=== PATIENT | female | born 1945 | race Caucasian/White ===

== ENCOUNTER → 2016-04-04 | Outpatient (CLI) | payer OTHER ==
[~2016-04-04] MED LIST: ACET-1138 PO; ASPEC325 PO; ASPEC81 PO; ASPI81TA28 PO; BIOT1CAP3 PO; CALC600T9 PO; CLB200 PO; GARL10007 PO; HYDR25TA5 PO; LISI40TA PO; METO1TAB69 PO; MORP15TA19 PO; MULT-506 PO; OMEG10007 PO; ONDA8TAB6 PO; OXYSR10 PO; POTASSIUM PO; RXC5 PO; SNK PO; VITA1CAP7 PO; ZINC PO
--- NOTE | 2016-04-04 12:51 | PAT Medication Instructions ---
Service Date Apr 04, 2016. Current Home Medication List Aspirin (Aspirin Ec), 81 MG PO 2XWEEK Biotin (Biotin), 5,000 MCG PO NOON Calcium Carbonate-Vitamin D (Calcium + D), 1 TAB PO NOON Fish Oil (Black Earth-3), 1,000 MG PO BID Garlic (Garlic), 1,000 MG PO NOON Hydrochlorothiazide (Hydrochlorothiazide), 25 MG PO QAM Lisinopril (Zestril), 40 MG PO QAM Multivitamin (Multivitamin), 1 TAB PO NOON Vitamin E (E200), 200 UNITS PO 3XWEEK [Potassium], 99 MG PO 2XWEEK [Zinc], 500 MG PO 2XWEEK Medication Instructions For Your Scheduled Surgery Aspirin (Aspirin Ec), 81 MG PO 2XWEEK (continue as usual) - Hold the following medications 2 weeks prior to surgery: Zinc, 500 MG PO 2XWEEK Vitamin E (E200), 200 UNITS PO 3XWEEK Garlic (Garlic), 1,000 MG PO NOON Fish Oil (Black Earth-3), 1,000 MG PO BID Biotin (Biotin), 5,000 MCG PO NOON - Hold the following medications the morning of surgery: Potassium 99 MG PO 2XWEEK Multivitamin (Multivitamin), 1 TAB PO NOON Hydrochlorothiazide (Hydrochlorothiazide), 25 MG PO QAM Lisinopril (Zestril), 40 MG PO QAM Calcium Carbonate-Vitamin D (Calcium + D), 1 TAB PO NOON If you have any questions please call us at [phone] or [phone] ( Kendra) or [phone]
[2016-04-04 13:48] LABS: ALT/SGPT 33 U/L (12-78); BLOOD UREA NITROGEN 14 mg/dl (7-18); BUN/CREATININE RATIO 18.1 (10-20); CALCIUM 9.1 mg/dl (8.5-10.1); CARBON DIOXIDE 25 mmol/L (21-32); CHLORIDE 102 mmol/L (98-107); CHOLESTEROL 202 mg/dl (0-200); CREATININE 0.75 mg/dl (0.60-1.20); GLUCOSE 110 mg/dl (70-99); POTASSIUM 3.8 mmol/L (3.5-5.1); SODIUM 137 mmol/L (136-145); TRIGLYCERIDES 142 mg/dl (0-150); VERY LOW DENSITY LIPOPROT CALC 28 mg/dl
[2016-04-04 13:50] LABS: ALB/GLOB RATIO 1.3 (0.9-2); ALKALINE PHOSPHATASE 59 U/L (45-117); AST/SGOT 26 U/L (15-37); CHOLESTEROL/HDL RATIO 3.7; HDL CHOLESTEROL 54 mg/dl; LDL CHOLESTEROL CALCULATED 120 mg/dl
[2016-04-04 13:53] LABS: ESTIMATED AVERAGE GLUCOSE 108 mg/dl; HA1C FLAG Normal (Normal)
== END | disposition home or self-care (01) ==
LOC: C.LAB 12:05
PROVIDERS: ATTEND Family Medicine
DX: I10 Essential (primary) hypertension (principal); E78.5 Hyperlipidemia, unspecified; R73.01 Impaired fasting glucose

== ENCOUNTER 2016-04-18 10:52 | Inpatient (IN) | payer OTHER ==
[2016-04-04 12:13] VITALS: BMI 37.0
[2016-04-04 13:20] LABS: BASO % 0.3 %; BASO ABS # 0.03 K/uL (0-0.2); COMPLETE YES; EOS % 1.2 %; HEMATOCRIT 37.2 % (37-47); IG% 0.6 %; LYMPH % 20.9 %; LYMPH ABS # 2.08 K/uL (1.2-3.4); MEAN CELL VOLUME 83.8 fL (80-100); MEAN CORPUSCULAR HEMOGLOBIN 30.6 pg (25-34); MEAN CORPUSCULAR HGB CONC 36.6 g/dl (32-36); MONO % 5.9 %; NEUT % 71.1 %; PLATELET COUNT 254 K/uL (130-400); RED BLOOD COUNT 4.44 M/uL (4.2-5.4); WHITE BLOOD COUNT 9.94 K/uL (4.8-10.8)
[2016-04-04 13:22] LABS: URINE APPEARANCE CLOUDY (CLEAR); URINE BILIRUBIN NEG (NEG); URINE COLOR DK YELLOW; URINE EPITHELIAL CELL AUTO >30 /lpf (0-5); URINE NITRITE NEG (NEG); URINE PH 5.5 (4.5-7.5); URINE SPECIFIC GRAVITY 1.026 (1.000-1.030); UROBILINOGEN NEG (NEG); ZZUR CULT IF INDIC CLEAN CATCH YES
[2016-04-04 13:31] LABS: MANUAL MICROSCOPIC REQUIRED? NO; REVIEW REQ? NO
[2016-04-04 13:33] LABS: PARTIAL THROMBOPLASTIN RATIO 0.9; PROTHROMBIN TIME (PATIENT) 10.7 SECONDS (9.0-12.0)
--- NOTE | 2016-04-04 13:57 | DIAGNOSTIC IMAGING REPORT ---
TWO VIEW CHEST CLINICAL HISTORY: Preoperative examination. FINDINGS: PA and lateral chest radiographs are compared to study dated 12/30/2013. The heart is mildly enlarged and there is atherosclerotic calcification of the thoracic or. The pulmonary vasculature is noncongested. Chronic interstitial thickening is unchanged. The lungs and pleural spaces are clear. There is no pneumothorax. The skeletal structures are osteopenic. Degenerative change is noted throughout the thoracic spine. Productive degenerative change is noted at the right acromioclavicular joint. IMPRESSION: Mild cardiac enlargement with no active disease in the chest. Electronically signed by: Albert Bhatia M.D. 04/04/2016 1:55 PM Dictated Date/Time: 04/04/2016 1:49 PM
--- NOTE | 2016-04-17 14:59 | HISTORY & PHYSICAL EXAMINATION ---
DATE OF ADMISSION: 04/18/2016 CHIEF COMPLAINT: Left knee pain. HISTORY OF PRESENT ILLNESS: Holly is a 71-year-old female with a 6-month history of left knee pain. She rates her pain at 6/10. She has pain with her daily activities. She has limited standing and walking tolerance. Pain is worse with weightbearing. The patient has had injections and anti-inflammatories in the past as well as physical therapy without relief. She has failed conservative treatment and is scheduled for a left knee replacement. PAST MEDICAL HISTORY: Hypertension and a history of MRSA osteoarthritis. She denies heart disease, diabetes or DVT. PAST SURGICAL HISTORY: Right total hip arthroplasty. SOCIAL HISTORY: The patient denies alcohol or tobacco use. She lives in a single chad home. She is and retired. FAMILY HISTORY: Negative for DVT. MEDICATIONS: Lisinopril 40 mg daily, hydrochlorothiazide 25 mg daily, aspirin 81 mg twice a week, multivitamin 1 daily, calcium plus D3 once daily, garlic 1000 mg daily, zinc 50 mg twice a week, potassium twice a week, vitamin E 200 mg 3 times a week, fish oil 1000 mg daily, and biotin 5000 mg daily. ALLERGIES: None. REVIEW OF SYSTEMS: See HPI. Ten other systems reviewed, all negative. PHYSICAL EXAMINATION: VITAL SIGNS: Height 5 feet 5 inches, weight 225 pounds, and BMI is 37. GENERAL: This is a well-developed and well-nourished female, who is alert and oriented x3. Mood and affect are appropriate. HEENT: Normocephalic and atraumatic. Mucous membranes are moist and intact. NECK: Supple without lymphadenopathy. HEART: Regular rate and rhythm without murmurs, rubs or gallops. LUNGS: Clear to auscultation without wheezes or rhonchi. ABDOMEN: Soft and nontender. Bowel sounds are equal and active. EXTREMITIES: No ecchymosis, redness or warmth. Thigh and calf are soft and nontender. She has varus deformity. She has moderate flexion contracture of 10 degrees. She can flex to 100 degrees with no laxity. She is neurovascularly intact with +5/5 strength. X-RAY EXAMINATION: AP and lateral views show joint space narrowing and large osteophyte formation. IMPRESSION: Degenerative joint disease, left knee. PLAN: The patient will be admitted for a left total knee arthroplasty. We will plan on aspirin for DVT prophylaxis. The patient will be doing likely outpatient physical therapy.
[2016-04-18] VITALS (7 sets, daily range): BP systolic 111–146; BP diastolic 62–78; PULSE 88–101; TEMP 36.5–36.9; O2SAT 93–97; Ht 165.1 cm; Wt 101.9 kg
[~2016-04-18] VITALS: Ht 165.1 cm; Wt 101.9 kg
[~2016-04-18 10:52] MED LIST changes: -ACET-1138 PO; +ACETAMINOPHEN 500 MG TAB PO SCH; -ASPEC325 PO; -ASPEC81 PO; +BUPIVACAINE 0.25% 30 ML VIAL ONE; +BUPIVACAINE 0.5 % 5 MG/1 ML PF 10ML VIAL ONE; +CEFAZOLIN 2000 MG/60 ML D5W 60 ML IV SCH; -CLB200 PO; +CeleBREX 200 MG CAP PO SCH; +DEXAMETHASONE 4 MG TAB PO SCH; +FAMOTIDINE 20 MG TAB PO SCH; +LACTATED RINGER'S 1000ML 1,000 ML IV SCH; +LACTATED RINGER'S 1000ML 500 ML IV ONE; +LACTATED RINGER'S 1000ML IV SCH; -METO1TAB69 PO; +METOCLOPRAMIDE HCL 10 MG TAB PO SCH; -MORP15TA19 PO; -ONDA8TAB6 PO; +OXYCODONE HCL 10 MG TABCR (OXYCONTIN) PO SCH; -OXYSR10 PO; +POLYMYXIN B SULFATE 100,000 UNITS in NSS 100ML IR SCH; +ROPIVACAINE 5MG/ML 30 ML 150 MG, BUPIVACAINE/EPINEPHR 0.5% MPF 30 ML, KETOROLAC TROMETH... INFIL SCH; -RXC5 PO; -SNK PO; +VANCOMYCIN 1GM/270ML NSS 270 ML IV SCH; +VANCOMYCIN INJ 1,500 MG in SODIUM CHLORIDE 0.9% 500ML 500 ML IV SCH; +VANCOMYCIN INJ 400 MG in NSS 100ML IR SCH
[2016-04-18] MEDS ORDERED: PROPOFOL IV EMULSION 10 MG/ML 20 ML VIAL IV ONE ×2 (11:32→14:59)
[2016-04-18] MEDS ORDERED: MIDAZOLAM HCL 1 MG/ML 2ML VIAL ONE ×2 (11:32→13:50)
[2016-04-18] MEDS ORDERED: FENTANYL CITRATE INJ 50 MCG/1 ML 2 ML VIAL ONE (11:32)
[2016-04-18] MEDS ORDERED: ONDANSETRON INJ 2 MG/ML 2 ML VIAL ONE (11:32)
[2016-04-18] MEDS ORDERED: LIDOCAINE HCL 2% 2 ML VIAL (20MG/ML) ONE (11:32)
--- NOTE | 2016-04-18 12:21 | History & Physical Bridge Note ---
H&P Re-Evaluation Bridge Note: I have examined the patient, reviewed the History & Physical and in the interval since the performance of the History & Physical I have noted the following changes of clinical significance: No changes noted
[2016-04-18] MEDS ORDERED: ORTHO JOINT ANESTHETIC ONE (13:00)
[2016-04-18] MEDS ORDERED: BUPIVACAINE/EPINEPHRINE 0.25% 1:200,000 30 ML VIAL ONE (13:00)
[2016-04-18] MEDS ORDERED: POVIDONE-IODINE OP SOLN 30 ML BTL ONE (13:01)
[2016-04-18] MEDS ORDERED: BACITRACIN 50000 UNIT VIAL ONE (13:01)
[2016-04-18] MEDS: TRANEXAMIC ACID INJ 1,000 MG in SODIUM CHLORIDE 0.9% 100ML 100 ML IV SCH ×2 (13:01→20:34)
[2016-04-18] MEDS ORDERED: LACTATED RINGER'S 1000ML 1,000 ML IV PRN (13:04)
[2016-04-18] MEDS ORDERED: ONDANSETRON INJ 2 MG/ML 2 ML VIAL IV PRN ×2 (13:15→15:00)
[2016-04-18] MEDS ORDERED: FENTANYL CITRATE INJ 50 MCG/1 ML 2 ML VIAL IV PRN (13:15)
[2016-04-18] MEDS ORDERED: GLYCOPYRROLATE INJ 0.2 MG/ML VIAL ONE (13:49)
--- NOTE | 2016-04-18 14:56 | [facility] Post Operative Brief Note ---
Immediate Operative Summary Operative Date Apr 18, 2016. Pre-Operative Diagnosis Degenerative joint disease, left knee Post-Operative Diagnosis Same as preop Procedure(s) Performed Left total knee arthroplasty Surgeon Dr. Veliz [employer] Associate Surgeon(s) Kim Means PA-C Estimated Blood Loss 5 cc Findings severe disease Specimens A: left knee bone and tissue Complication(s) None Disposition Recovery Room / PACU
[2016-04-18] MEDS ORDERED: SOD PHOSPHATE/SOD BIPHOSPHATE ENEMA 132 ML BTL PR PRN (15:00)
[2016-04-18] MEDS ORDERED: BISACODYL 10 MG SUPP PR PRN (15:00)
[2016-04-18] MEDS ORDERED: DiphenhydrAMINE HCL 50 MG/ML VIAL IV PRN (15:00)
[2016-04-18] MEDS ORDERED: ZOLPIDEM TARTRATE 5 MG TAB PO PRN (15:00)
[2016-04-18] MEDS ORDERED: MoRPHine SULFATE 2 MG/ML CARP IV PRN (15:00)
[2016-04-18] MEDS ORDERED: OXYCODONE HCL IR 5 MG TAB (IMMEDIATE RELEASE) PO PRN (15:00)
[2016-04-18] MEDS ORDERED: KETOROLAC TROMETHAMINE 15 MG/ML VIAL IV. PRN (15:00)
[2016-04-18] MEDS ORDERED: MAGNESIUM HYDROXIDE SUSP 30 ML UDC PO PRN (15:00)
[2016-04-18] MEDS ORDERED: ALUMINUM/MAGNESIUM/SIMETH (MAALOX MAX) 30 ML UDC PO PRN (15:00)
[2016-04-18] MEDS ORDERED: METOCLOPRAMIDE HCL INJ 5 MG/ML 2 ML VIAL IV PRN (15:00)
--- NOTE | 2016-04-18 16:03 | DIAGNOSTIC IMAGING REPORT ---
PORTABLE LEFT KNEE 2 VIEWS CLINICAL HISTORY: Postop knee arthroplasty COMPARISON: None. DISCUSSION: There are postsurgical changes of a total left knee arthroplasty and patellar resurfacing. The femoral and tibial components appear well seated. Overlying skin amanda are evident. There is aortic and the soft tissues consistent with history of recent surgery. IMPRESSION: Postsurgical changes of a total left knee arthroplasty. Electronically signed by: Deshaun Rhodes M.D. 04/18/2016 4:01 PM Dictated Date/Time: 04/18/2016 4:01 PM
--- NOTE | 2016-04-18 16:45 | OPERATIVE REPORT ---
DATE OF OPERATION: 04/18/2016 PREOPERATIVE DIAGNOSIS: Severe degenerative arthritis, left knee. POSTOPERATIVE DIAGNOSIS: Same. PROCEDURE: Left total knee with patient matched implant. SURGEON: Dr. Chris Veliz. BASIC SCIENCES PROFESSOR: JULISSA Hodge. ANESTHESIA: Spinal. TOURNIQUET TIME: 70 minutes at 350 mmHg. DRAINS: Hemovac x2. CULTURES: None. COMPLICATIONS: None. COMPONENTS USED: [employer] Journey Knee System: Femur size 5, tibia size 4 x 10, and patella size 32. NOTE: JULISSA Hodge was present and assisted throughout due to the complicated nature of this case. He helped with preparation and set up, first assisted throughout and personally closed the capsule, subcutaneous and skin layers and applied the postoperative dressing. DESCRIPTION OF PROCEDURE: Following satisfactory spinal, the patient was supine. A tourniquet was placed. The lower extremity was prepared with ChloraPrep and draped sterilely. The tourniquet was inflated because of the severity of the disease. Following a surgical time out, a midline incision was made with a median parapatellar arthrotomy. The patient had severe disease with what appeared to be severe bone loss of the patella and a preoperative range motion of 10-100 degrees only. The knee showed severe wear of the patella and severe patellofemoral and medial disease. The anterior cruciate ligament was absent. The posterior cruciate ligament was excised. The patient matched femoral block was applied. Femoral distal rotation and resection were set and completed. The 4-in-1 block was used to finish preparation of the femur. The patient matched tibial block was applied. Tibial resection was completed. The patella was freehand cut very carefully and sized to about 12 mm thick. A precut patella measured only about 13 mm thick and was quite sclerotic and deformed. However, we were able to obtain a solid base to the patella. A trial reduction was performed. The knee showed good patellar tracking and good stability with much improved range of motion. The trial components were removed. The capsule was prepared with the orthopedic cocktail and after irrigation, the components were cemented using Simplex G cement. A Betadine soak was performed. When the cement had hardened, the Betadine was irrigated. Two drains were placed. The arthrotomy was closed with 0 V-Loc and reinforced with 1 Vicryl interrupted. The subcutaneous tissues were closed with 2-0 Vicryl. The skin was closed with a running subcuticular stitch of 3-0 V-Loc. Dermabond and then a surface wound VAC were applied. The tourniquet was deflated. The patient was returned to her bed in stable condition. I attest to the content of the Intraoperative Record and any orders documented therein. Any exceptio ns are noted below.
--- NOTE | 2016-04-18 17:32 | Anesthesiology Progress Note ---
Anesthesia Post Op Note Date & Time Apr 18, 2016 at 17:33 Vital Signs Pain Intensity: 0 Vital Signs Past 12 Hours Date Time Temp Pulse Resp B/P Pulse Ox O2 Delivery O2 Flow Rate FiO2 04/18/16 17:25 36.6 92 20 120/69 96 Nasal Cannula 2 04/18/16 17:15 94 16 133/75 94 Nasal Cannula 2 04/18/16 17:05 93 18 120/63 94 Nasal Cannula 2 04/18/16 16:55 93 20 113/63 95 Nasal Cannula 2 04/18/16 16:45 92 16 122/69 95 Nasal Cannula 2 04/18/16 16:35 91 13 122/66 94 Nasal Cannula 2 04/18/16 16:25 92 18 106/71 94 Nasal Cannula 2 04/18/16 16:15 93 17 121/68 94 Nasal Cannula 2 04/18/16 16:05 96 17 122/68 94 Nasal Cannula 2 04/18/16 15:55 94 19 125/64 94 Nasal Cannula 2 04/18/16 15:45 97 20 117/60 94 Nasal Cannula 2 04/18/16 15:37 36.4 100 16 118/58 94 Nasal Cannula 2 04/18/16 11:28 36.9 88 18 133/76 96 Room Air Notes Mental Status: alert / awake / arousable, participated in evaluation Pt Amnestic to Procedure: Yes Nausea / Vomiting: adequately controlled Pain: adequately controlled Airway Patency, RR, SpO2: stable & adequate BP & HR: stable & adequate Hydration State: stable & adequate Anesthetic Complications: no major complications apparent
[2016-04-18] MEDS: D5W AND 1/2NSS + 20MEQ KCL 1,000 ML IV SCH (20:49)
[2016-04-18] MEDS: CEFAZOLIN IV 2,000 MG in DEXTROSE 5% 50ML 50 ML IV SCH (20:58)
[2016-04-18] MEDS: ASPIRIN 81 MG ECTAB PO SCH (20:59)
[2016-04-18] MEDS: OXYCODONE HCL 10 MG TABCR (OXYCONTIN) PO SCH (21:01)
[2016-04-18] MEDS: SENNA 8.6 MG TAB PO SCH (21:02)
[2016-04-18] MEDS ORDERED: TRANEXAMIC ACID INJ 1,000 MG in SODIUM CHLORIDE 0.9% 100ML 100 ML IV ONE (22:00)
[2016-04-18] MEDS: ACETAMINOPHEN 500 MG TAB PO SCH (22:16)
[2016-04-19] VITALS (7 sets, daily range): BP systolic 122–149; BP diastolic 65–106; PULSE 81–90; TEMP 36.4–36.5; O2SAT 94–96
[2016-04-19] MEDS: CEFAZOLIN IV 2,000 MG in DEXTROSE 5% 50ML 50 ML IV SCH (03:29)
[2016-04-19] MEDS: ACETAMINOPHEN 500 MG TAB PO SCH ×3 (05:34→21:40)
[2016-04-19] MEDS: D5W AND 1/2NSS + 20MEQ KCL 1,000 ML IV SCH ×2 (05:34→13:47)
[2016-04-19 07:45] LABS: HEMATOCRIT 31.1 % (37-47); MEAN CELL VOLUME 83.6 fL (80-100); MEAN CORPUSCULAR HEMOGLOBIN 30.1 pg (25-34); MEAN PLATELET VOLUME 8.2 fL (7.4-10.4); PLATELET COUNT 214 K/uL (130-400); RED BLOOD COUNT 3.72 M/uL (4.2-5.4)
[2016-04-19 08:11] LABS: BUN/CREATININE RATIO 18.3 (10-20); CALCIUM 8.4 mg/dl (8.5-10.1); CREATININE 0.83 mg/dl (0.60-1.20); POTASSIUM 3.9 mmol/L (3.5-5.1)
--- NOTE | 2016-04-19 08:15 | Orthopedic Progress Note ---
Orthopedic Progress Note Date of Service Apr 19, 2016. Subjective Post OP Day: 1 Reports: feeling well, Denies: SOB, calf pain, chest pain, light headedness, nausea / vomiting Objective calves soft nontender, N/V intact, dressing C/D/I, A&O x3, toes mobile, hemovac drainage (250/150CC PER SHIFT) Date Time Temp Pulse Resp B/P Pulse Ox O2 Delivery O2 Flow Rate FiO2 04/19/16 08:00 36.5 83 18 126/78 94 Room Air 04/19/16 03:57 36.4 84 16 122/71 94 Room Air 04/19/16 00:25 Room Air 04/18/16 23:57 36.6 94 16 124/70 95 Room Air 04/18/16 21:55 36.7 100 16 130/68 95 Room Air 04/18/16 20:15 36.5 101 17 134/70 96 Nasal Cannula 2.0 04/18/16 19:13 36.7 90 16 146/78 94 Nasal Cannula 2.0 04/18/16 18:50 36.6 88 16 127/73 93 Nasal Cannula 2.0 04/18/16 18:15 97 Nasal Cannula 2.0 04/18/16 18:15 Nasal Cannula 2.0 04/18/16 18:15 36.8 92 16 111/62 97 Nasal Cannula 2.0 04/18/16 17:45 93 20 119/67 96 Nasal Cannula 2 04/18/16 17:35 94 22 123/65 95 Nasal Cannula 2 04/18/16 17:25 36.6 92 20 120/69 96 Nasal Cannula 2 04/18/16 17:15 94 16 133/75 94 Nasal Cannula 2 04/18/16 17:05 93 18 120/63 94 Nasal Cannula 2 04/18/16 16:55 93 20 113/63 95 Nasal Cannula 2 04/18/16 16:45 92 16 122/69 95 Nasal Cannula 2 04/18/16 16:35 91 13 122/66 94 Nasal Cannula 2 04/18/16 16:25 92 18 106/71 94 Nasal Cannula 2 04/18/16 16:15 93 17 121/68 94 Nasal Cannula 2 04/18/16 16:05 96 17 122/68 94 Nasal Cannula 2 04/18/16 15:55 94 19 125/64 94 Nasal Cannula 2 04/18/16 15:45 97 20 117/60 94 Nasal Cannula 2 04/18/16 15:37 36.4 100 16 118/58 94 Nasal Cannula 2 04/18/16 11:28 36.9 88 18 133/76 96 Room Air Laboratory Results 24 Hours: Test 04/19/16 07:25 Hematocrit 31.1 % Hemoglobin 11.2 g/dL Assessment & Plan Assessment: POD#1 SP LEFT TKA Inhouse Planning Pain Management: Celebrex, Oxycontin, PO Tylenol, Oxy IR DVT Prophylaxis: TEDs, SCDs, ASA Discharge Planning Discharge Planning: home with home health ([facility] DC SUNDAY DUE TO DRAIN OUTPUT.)
[2016-04-19] MEDS: OXYCODONE HCL 10 MG TABCR (OXYCONTIN) PO SCH ×2 (08:57→21:00)
[2016-04-19] MEDS: MULTIVITAMIN TAB PO SCH (08:58)
[2016-04-19] MEDS: PANTOprazole SOD 40 MG TAB PO SCH (08:58)
[2016-04-19] MEDS: HYDROCHLOROTHIAZIDE 25 MG TAB PO SCH (08:59)
[2016-04-19] MEDS: ASPIRIN 81 MG ECTAB PO SCH ×2 (08:59→21:40)
[2016-04-19] MEDS: LISINOPRIL 40 MG TAB PO SCH (08:59)
--- NOTE | 2016-04-19 14:15 | Anesthesiology Progress Note ---
Anesthesia Post Op Note Date & Time Apr 19, 2016 at 14:15 Vital Signs Pain Intensity: 7.0 Vital Signs Past 12 Hours Date Time Temp Pulse Resp B/P Pulse Ox O2 Delivery O2 Flow Rate FiO2 04/19/16 11:43 124/68 04/19/16 11:12 36.5 90 18 148/106 96 Room Air 04/19/16 08:38 94 Room Air 04/19/16 08:00 36.5 83 18 126/78 94 Room Air 04/19/16 07:54 Room Air 04/19/16 03:57 36.4 84 16 122/71 94 Room Air Notes Mental Status: alert / awake / arousable, participated in evaluation Pt Amnestic to Procedure: Yes Nausea / Vomiting: adequately controlled Pain: adequately controlled Airway Patency, RR, SpO2: stable & adequate BP & HR: stable & adequate Hydration State: stable & adequate Neuraxial Anesthesia: was administered, sensory block resolved Anesthetic Complications: no major complications apparent
[2016-04-19] MEDS: TRAMADOL HCL 50 MG TAB PO PRN (16:23)
[2016-04-19] MEDS: SENNA 8.6 MG TAB PO SCH (21:40)
[2016-04-20] MEDS: ACETAMINOPHEN 500 MG TAB PO SCH (05:32)
[2016-04-20 07:25] VITALS: BP 160/81; PULSE 80; TEMP 36.6; O2SAT 95
[2016-04-20] MEDS: TRAMADOL HCL 50 MG TAB PO PRN (07:41)
--- NOTE | 2016-04-20 07:59 | Orthopedic Progress Note ---
Orthopedic Progress Note Date of Service Apr 20, 2016. Subjective Post OP Day: 2 Reports: feeling well, pain controlled w PO medications, Denies: complaints Objective calves soft nontender, dressing C/D/I, A&O x3, toes mobile Date Time Temp Pulse Resp B/P Pulse Ox O2 Delivery O2 Flow Rate FiO2 04/20/16 07:40 Room Air 04/19/16 23:12 36.4 81 16 149/73 95 Room Air 04/19/16 22:30 Room Air 04/19/16 16:28 Room Air 04/19/16 16:04 36.4 84 18 129/65 94 Room Air 04/19/16 11:43 124/68 04/19/16 11:12 36.5 90 18 148/106 96 Room Air 04/19/16 08:38 94 Room Air 04/19/16 08:00 36.5 83 18 126/78 94 Room Air Assessment & Plan Assessment: POD# 2 SP LEFT TKA Inhouse Planning Pain Management: Celebrex, Oxycontin, PO Tylenol, Oxy IR DVT Prophylaxis: TEDs, SCDs, ASA Discharge Planning Discharge Planning: home with home health (DC TODAY DRAIN OUT )
[2016-04-20] MEDS ORDERED: ASPEC81 PO (08:26)
[2016-04-20] MEDS ORDERED: RXC5 PO (08:26)
[2016-04-20] MEDS ORDERED: OXYSR10 PO (08:26)
[2016-04-20] MEDS ORDERED: ACET-1138 PO (08:26)
[2016-04-20] MEDS ORDERED: SNK PO (08:26)
[2016-04-20] MEDS ORDERED: ONDA8TAB6 PO (08:26)
[2016-04-20] MEDS ORDERED: CLB200 PO (08:26)
--- NOTE | 2016-04-20 08:37 | Discharge Instructions ---
Discharge Instructions Admission Reason for Admission: Left Knee Degenerative Arthritis Discharge Discharge Diagnosis / Problem: Left Knee Djd Discharge Goals Goal(s): Decrease discomfort, Improve function Activity Recommendations Activity Limitations: per Instructions/Follow-up section Weightbearing Status: Left weightbearing (as tolerated) . Instructions / Follow-Up Instructions / Follow-Up ACTIVITY RECOMMENDATIONS: SELF CARE INSTRUCTIONS AFTER TOTAL KNEE REPLACEMENT A. You may need to continue a physical therapy program after discharge from the hospital. There are several options available to you. Your doctor will assist you in selecting the best one for you. 1. An out-patient facility 2 to 3 times a week for therapy or home therapy. 2. Continue working on all exercises taught to you in the hospital. Your goals should be to increase bending of your knee to 90 degrees and beyond and to fully straighten your knee. B. You may progress at your own pace from walking with a walker or crutches to a cane; then to no assistive devices. C. Make walking a part of your daily routine. Be up as much as comfortable with rest periods throughout the day. Rest with leg elevation is very important. Use the ice wrap frequently for the first 3-4 weeks. D. There are no restrictions on activities. You may ride in a car, shop, participate in traffic ii manager and all social activities. E. Wear the long elastic stockings (HUSSEIN hose) 20 hours a day for 2 weeks after surgery. They can be removed several times a day for laundering and for a bath. F. You may shower, no tub baths until cleared by your doctor. SPECIAL CARE INSTRUCTIONS: VERY IMPORTANT TO READ AND REVIEW A. There are a few signs you need to watch for after you are home. Call [facility] if you notice any of the followin. Increased severe knee pain. Some pain is expected especially when you exercise. 2. Increased swelling in your leg or knee; pain or swelling of the calf muscle in either lower leg. 3. Any fluid drainage from the incision. 4. Shortness of breath or chest pain. B. Please call [facility] at if you have any concerns or questions about your operation or recovery. The doctor or his nurse will return your call promptly. C. You must take antibiotics before dental work, bladder, bowel or other surgery. Your doctor will provide you with a permanent care to carry describing this precaution. IMPORTANT: * REMEMBER TO TAKE ASPIRIN, 81 MG, TWICE DAILY FOR 4 WEEKS UNLESS OTHERWISE DIRECTED. THIS IS YOUR BLOOD THINNER. * HIGH RISK PATIENTS MAY BE PRESCRIBED A STRONGER BLOOD THINNER. THIS WILL BE PROVIDED AT DISCHARGE. * CALL IF INCREASED PAIN, REDNESS, DRAINAGE OR FEVER GREATER THAT 101. * WEAR HUSSEIN HOSE 20 HOURS PER DAY FOR 2 WEEKS. * Prevena- This is a large suction dressing covering your incision. This will help pull any excess drainage from the wound and allow your incision to heal properly. You may shower with this if you can keep the unit outside of the shower. If any bleeding or leakage is noted please call your doctor's office. This will remain on your incision for 7 days and then should be removed. This can be done yourself or by the home nursing staff if applicable. The entire unit is disposable once removed. Once removed, keep incision clean and dry. After you have removed the Prevena dressing, follow the instructions below for the Dermabond dressing. If redness or drainage is noted, please call your surgeon. *DERMABOND Prineo- This is a mesh tape dressing that is covered with glue. It should remain in place until the incision is properly healed, usually 10-14 days. This dressing is designed to naturally slough off. You may trim the excess mesh tape as it peels off. Incision may be briefly wet in a shower. Dry immediately by blotting with a clean, dry towel. Do not bath or swim until instructed by your doctor. Do not scratch, rub, or pick at the dressing. Do not apply any topical ointments or lotions until dressing is completely removed and/or instructed by your doctor. There may be a small piece of suture material at one end of your incision. Do not pull or trim this. If it is bothersome or catching on clothing, you may cover it with a band-aid. . FOLLOW UP VISIT: If appointment is not already scheduled: Please call [facility] to make a follow-up appointment for 2 weeks after your surgery at . Current Hospital Diet Patient's current hospital diet: Regular Diet Discharge Diet Recommended Diet: Regular Diet Procedures Procedures Performed: Left total knee arthroplasty Pending Studies Studies pending at discharge: no Laboratory Results Hemoglobin A1c Test 04/04/16 12:57 Range/Units Estimated Average Glucose 108 mg/dl Hemoglobin A1c 5.4 4.5-5.6 % Lipid Panel Test 04/04/16 12:57 Range/Units Triglycerides Level 142 0-150 mg/dl Cholesterol Level 202 H 0-200 mg/dl HDL Cholesterol 54 mg/dl Cholesterol/HDL Ratio 3.7 LDL Cholesterol, Calculated 120 mg/dl Medical Emergencies . Who to Call and When: Medical Emergencies: If at any time you feel your situation is an emergency, please call 911 immediately. . Non-Emergent Contact Non-Emergency issues call your: Surgeon Call Non-Emergent contact if: temperature is above 101.5, your pain is not controlled, your pain is worsening, wound has increased drainage, wound has increased redness . "Provider Documentation" section prepared by Dario Means. VTE Core Measure Inpt VTE Proph given/why not?: Other Anticoagulation, T.E.D. Stockings, SCD's [place] Drug Monitoring Program Search Results: patient reviewed within database, no issues identified
[2016-04-20] MEDS ORDERED: MORP15TA19 PO (08:40)
[2016-04-20] MEDS: PANTOprazole SOD 40 MG TAB PO SCH (09:00)
[2016-04-20] MEDS: OXYCODONE HCL 10 MG TABCR (OXYCONTIN) PO SCH (09:00)
[2016-04-20] MEDS: ASPIRIN 81 MG ECTAB PO SCH (09:10)
[2016-04-20] MEDS: LISINOPRIL 40 MG TAB PO SCH (09:10)
[2016-04-20] MEDS: MULTIVITAMIN TAB PO SCH (09:10)
[2016-04-20] MEDS: HYDROCHLOROTHIAZIDE 25 MG TAB PO SCH (09:10)
[2016-04-20 10:36] VITALS: BP 160/81; PULSE 80; TEMP 36.6; O2SAT 95
--- NOTE | 2016-04-20 15:20 | DISCHARGE SUMMARY ---
DISCHARGE DIAGNOSIS: Degenerative joint disease, left knee. SECONDARY DIAGNOSES: Hypertension, history of methicillin-resistant Staphylococcus aureus, osteoarthritis. CONSULTS: None. COMPLICATIONS: None. PROCEDURE: Left total knee arthroplasty performed by Dr. Chris Veliz on 04/18/2016. BRIEF HISTORY: As dictated in history and physical. HOSPITAL SUMMARY: The patient was admitted on the above date and had the above noted surgery performed which she tolerated well. On the first postoperative day, patient was feeling well and had no complaints. Calves were soft and nontender, neurovascularly intact. Dressings clean, dry and intact. Toes were mobile. She was started on physical therapy protocol and continued on DVT prophylaxis and pain management. Vital signs were stable. She was afebrile. Hemoglobin was 11.2 and she was continued on her protocol. By her second postoperative day, she continued to feel well, pain was controlled. Calves were soft and nontender. Neurovascularly intact. Vital signs were stable. She was afebrile. She was progressing well with physical therapy and it was felt she could be discharged with home health services on 04/20/2016. For further review, please see chart. LAB AND X-RAY DATA: As per chart. DISCHARGE INSTRUCTIONS: The patient was discharged to home in satisfactory condition on 04/20/2016. DIET: Regular. ACTIVITY: Follow TKA instruction sheets and special care instructions as noted. Follow up with Dr. Chris Veliz in 2 weeks. The patient to call for appointment if one has not been made for you. DISCHARGE MEDICATIONS: Acetaminophen 1000 mg p.o. q. 8 hours p.r.n., aspirin 81 mg p.o. b.i.d., Celebrex 200 mg p.o. b.i.d., MS Contin 15 mg p.o. q. 12 hours, Zofran 8 mg p.o. t.i.d. p.r.n., oxycodone 5-10 mg p.o. q. 4 hours p.r.n., senna 17.2 mg at bedtime. Resume taking biotin 5000 mcg p.o. at noon, calcium carbonate with vitamin D 1 tab p.o. at noon, fish oil caplet 1000 mg p.o. b.i.d., garlic 1000 mg p.o. at noon, hydrochlorothiazide 25 mg p.o. q.a.m., lisinopril 40 mg p.o. q.a.m., multivitamin 1 tab p.o. at noon, vitamin E 200 units p.o. 3 times a week, potassium 99 mg p.o. 2 times a week, zinc 500 mg p.o. 2 times a week and after 30 days, resume the regular aspirin schedule with 81 mg tablet of aspirin.
[2016-04-20] MEDS ORDERED: CeleBREX 200 MG CAP PO SCH (21:00)
== END 2016-04-20 11:30 | disposition home health service (06) | DRG 470 ==
LOC: ENRESERVDT → ENRESERVTM → C.ACU 10:52 → C.3E 14:59
PROVIDERS: ADMIT Orthopaedic Surgery; ATTEND Orthopaedic Surgery
PROC: 0SRD0J9 Replacement of Left Knee Joint with Synthetic Substitute, Cemented, Open Approach (ICD-10-PCS; principal; 2016-04-18 12:45)
DX: M17.12 Unilateral primary osteoarthritis, left knee (principal); M21.162 Varus deformity, not elsewhere classified, left knee; I10 Essential (primary) hypertension; M24.562 Contracture, left knee; E66.9 Obesity, unspecified; Z86.14 Personal history of Methicillin resistant Staphylococcus aureus infection; Z68.37 Body mass index [BMI] 37.0-37.9, adult; Z96.641 Presence of right artificial hip joint; Z87.891 Personal history of nicotine dependence; Z79.82 Long term (current) use of aspirin; Z79.899 Other long term (current) drug therapy